=== PATIENT | female | born 2005 | race Two or more races ===

== ENCOUNTER 2023-06-11 19:42 | Emergency (ER) | payer MEDICAID ==
[~2023-06-11] VITALS: Ht 167.6 cm; Wt 97.8 kg
[2023-06-11] MEDS ORDERED: CEPH500C PO (23:10)
[2023-06-11] MEDS ORDERED: ACET500T58 PO (23:10)
[2023-06-11] MEDS: TETANUS-DIPTH-ACEL PERTUSSIS 0.5ML SYR Tdap IM ONE (23:41)
[2023-06-11] MEDS: cefTRIAXone SOD 1,000 MG VL IM ONE (23:41)
[2023-06-11 23:59] VITALS: BP 132/72; PULSE 78; RESP 18; TEMP 98.1; O2SAT 99
== END 2023-06-11 23:58 | disposition home or self-care (01) ==
LOC: ER 19:42
DX: S20.162A Insect bite (nonvenomous) of breast, left breast, initial encounter (principal); W57.XXXA Bitten or stung by nonvenomous insect and other nonvenomous arthropods, initial encounter; Y93.89 Activity, other specified; Y92.89 Other specified places as the place of occurrence of the external cause; Y99.8 Other external cause status
CPT/HCPCS: 90471; 90715; 96372; 99284; J0696

== ENCOUNTER 2024-06-08 08:45 | Emergency (ER) | payer MEDICAID ==
[~2024-06-08] VITALS: Ht 167.6 cm; Wt 115.1 kg
[~2024-06-08 08:45] MED LIST: ACET500T58 PO; CEPH500C PO
[2024-06-08 08:55] VITALS: BP 150/75; PULSE 99; RESP 15; TEMP 98.2; O2SAT 99
--- NOTE | 2024-06-08 09:12 | ED.PDOC ---
HPI Allergic reaction HPI Comments 19 y.o female presents to the ED for an evaluation of pruritus x 2 days associated with a development of a generalized rash this morning and SOB. Patient reports both upper and lower extremities are red due to itching. Patient is unsure of possible allergic reaction as she denies any known allergies. Patient denies any SOB, difficulty swallowing, fever, chills, or sore throat. Chief Complaint: Rash Time Seen by MD: 08:51 Primary Care Provider: UNKNOWN Reviewed Notes: Nurses Notes, Medications, Allergies Allergies: Coded Allergies: NO KNOWN ALLERGIES (Unverified , 06/11/23) Home Meds Active Scripts Cephalexin Monohydrate (Cephalexin) 500 Mg Cap, 1 CAP PO BID for 7 Days, #14 CAP 0 Refills Prov:DASH GANN 06/11/23 Acetaminophen (Acetaminophen) 500 Mg Tab, 500 MG PO Q4HPRN, #30 TAB 0 Refills Prov:DASH GANN 06/11/23 Information Source: Patient Mode of Arrival: Ambulatory Severity: Moderate Rash: Moderate SOB: Mild Difficulty swallowing: None Pruritus: Moderate Timing: Days (2) Duration: Since onset Location: Generalized Exposed to: Unknown Developed: Pruritus, Rash, Shortness of Breath History of: None Modyifying Factors: None Associated Sign and Symptoms: None Past Medical History PAST MEDICAL HISTORY: Denies Surgical History: Denies all surgeries Family History Family History: Unknown Social History Smoker: Non-Smoker Alcohol: Denies ETOH Use Drugs: Denies Drug Use Lives In: Home Constitutional: denies: chills, diaphoresis, fatigue, fever, malaise, sweats, weakness, others EENTM: denies: blurred vision, double vision, ear bleeding, ear discharge, ear drainage, ear pain, ear ringing, eye pain, eye redness, hearing loss, mouth pain, mouth swelling, nasal discharge, nose bleeding, nose congestion, nose pain, photophobia, tearing, throat pain, throat swelling, voice changes, others Respiratory: denies: cough, hemoptysis, orthopnea, SOB at rest, shortness of breath, SOB with excertion, stridor, wheezing, others Cardiovascular: denies: chest pain, dizzy spells, diaphoresis, Dyspnea on exertion, edema, irregular heart beat, left arm pain, lightheadedness, palpitat ions, PND, syncope, others Gastrointestinal: denies: abdomen distended, abdominal pain, blood streaked bow els, constipated, diarrhea, dysphagia, difficulty swallowing, hematemesis, melena, nausea, poor appetite, poor fluid intake, rectal bleeding, rectal pain, vomiting, others Genitourinary: denies: abnormal vagina bleeding, burning, dyspareunia, dysuria, flank pain, frequency, hematuria, incontinence, pain, , vagina discharge, urgency, others Neurological: denies: dizziness, fainting, headache, left sided numbness, left sided weakness, numbness, paresthesia, pre-existing deficit, right sided numbness, right sided weakness, seizure, speech problems, tingling, tremors, weakness, others Musculoskeletal: denies: back pain, gout, joint pain, joint swelling, muscle pain, muscle stiffness, neck pain, others Integumetry: reports: rash; denies: bruises, change in color, change in hair/nails, dryness, laceration, lesions, lumps, wounds, others Allergic/Immunocompromised: denies: Difficulty Healing, Frequent Infections, Hives, Itching, others Hematologic/Lymphatic: denies: anemia, blood clots, easy bleeding, easy bruising, swollen glands, others Endocrine: denies: excessive hunger, excessive sweating, excessive thirst, excessive urination, flushing, intolerance to cold, intolerance to heat, unexplained weight gain, unexplained weight loss, others Psychiatric: denies: anxiety, bipolar disorder, depression, hopeless, panic di sorder, schizophrenia, sleepless, suicidal, others All Other Systems: Reviewed and Negative Physical Exam General Appearance: Moderate Distress HEENT: Normal ENT Inspection, Pharynx Normal, TMs Normal Neck: Full Range of Motion, Non-Tender, Normal, Normal Inspection Respiratory: Chest Non-Tender, Lungs Clear, No Accessory Muscle Use, No Respiratory Distress, Normal Breath Sounds Cardiovascular: No Edema, No JVD, No Murmur, No Gallop, Normal Peripheral Pulses, Regular Rate/Rhythm Breast Exam: Deferred Gastrointestinal: No Organomegaly, Non Tender, No Pulsatile Mass, Normal Bowel Sounds, Soft Genitalia: Deferred Pelvic: Deferred Rectal: Deferred Extremities: No calf tenderness, Normal capillary refill, Normal inspection, Normal range of motion, Non-tender, No pedal edema Musculoskeletal : Apperance: Normal Neurologic: Alert, spout positioner II-XII nml as Tested, No Motor Deficits, Normal Affect, Normal Mood, No Sensory Deficits Cerebellar Function: Normal Reflexes: Normal Skin: Rash (Erythematous forearm legs) Peripheral Pulses: 3+ Radial (R), 3+ Radial (L) Lymphatic: No Adenopathy Was a procedure done? Was a procedure done?: No Differential diagnosis (all) Differential Diagnosis: Anaphylaxis, Contact Dermatitis, Drug Reaction, Urticaria X-Ray, Labs, Meds, VS Vital Signs Date Time Temp Pulse Resp B/P (MAP) Pulse Ox O2 Delivery O2 Flow Rate FiO2 06/08/24 08:55 98.2 99 15 150/75 (100) 99 98.2 06/08/24 08:47 98.2 99 15 150/75 (100) 99 98.2 06/08/24 08:47 99 15 99 Room Air Current Medications Medications (Trade) Dose Ordered Sig/Negro Route Start Time Stop Time Status Last Admin Methylprednisolone Sodium Succinate (Solu Medrol) 125 mg ONCE ONCE IM 06/08/24 09:00 06/08/24 09:02 DC 06/08/24 09:13 Patient alert. Started to have rash. She has been having itching for the past few days. Rash just started today. Vitals stable. Answering questions. Was given steroid. Was given prescription of prednisolone. No leg swelling. No shortness a breath. No chest pain. Saturation pristine on room air. Respiratory rate within normal limits. Heart rate clinically is normal. Explained to the patient. Was told to follow up with her primary care physician. Was told to come back if there is any problem. Time of 1ST Reevaluation: 09:11 Reevaluation 1ST: Improved Patient Education/Counseling: Diagnosis, Treatment, Prognosis Family Education/Counseling: No Family Present Departure 1 Departure Time of Disposition: 09:26 Impression: Primary Impression: Allergic reaction Qualified Codes: T78.40XA - Allergy, unspecified, initial encounter Disposition: HOME / SELF CARE / HOMELESS Condition: Good e-Prescriptions Prednisone (Prednisone) 10 Mg Tab 10 MG PO DAILY for 7 Days, #7 MG Prov: RYLAND ROMEO MD 06/08/24 Discharged With: Self Critical Care Note Critical Care Time?: No Stability Stability form required: No I personally scribed for RYLAND ROMEO MD ([email or web address]) on 06/08/24 at 09:12. Electronically submitted by Michelle Patel ([email or web address]). RYLAND ROMEO MD Jun 08, 2024 09:12
[2024-06-08] MEDS: methylPREDNISolone SOD SUCC 125 MG/2 ML VL IM ONE (09:13)
[2024-06-08] MEDS ORDERED: PRED10TA PO (09:27)
== END 2024-06-08 10:42 | disposition home or self-care (01) ==
LOC: ER 08:45
DX: T78.49XA Other allergy, initial encounter (principal); X58.XXXA Exposure to other specified factors, initial encounter
CPT/HCPCS: 96372; 99283; J2919

== ENCOUNTER 2024-08-23 08:04 | Emergency (ER) | payer MEDICAID ==
[~2024-08-23] VITALS: Ht 167.6 cm; Wt 116.4 kg
[~2024-08-23 08:04] MED LIST changes: +PRED10TA PO
--- NOTE | 2024-08-23 08:32 | ED.PDOC ---
Back pain HPI HPI Comments A 19 YEAR-OLD FEMALE PRESENTS TO THE ED WITH A CHIEF COMPLAINT OF LEFT BUTTOCK OF YESTERDAY MORNING. PATIENT REPORTS THAT PAIN IS A 9/10, RADIATES TO THE LEFT LEG, IS EXACERBATED WITH MOVEMENT, WITH IBUPROFEN A SLIGHT ALLEVIATING FACTOR. PATIENT HAS NO FURTHER COMPLAINTS AT THIS TIME AND OTHERWISE DENIES TRAUMA OR INJURY TO THE BACK, WELL , N/V/D, DIZZINESS, CHEST PAIN, FEVER, OR BODY ACHES. PATIENT IS ALERT, ORIENTED X 4, AND HAS STEADY GAIT. Chief Complaint: Back Pain Time Seen by MD: 08:20 Primary Care Provider: UNKNOWN Reviewed Notes: Nurses Notes, Medications, Allergies Allergies: Coded Allergies: NO KNOWN ALLERGIES (Unverified , 06/11/23) Home Meds Active Scripts Methocarbamol (Methocarbamol) 750 Mg Tab, 750 MG PO BID, #20 TAB Prov:MANUELITO COSBY 08/23/24 Ibuprofen (Ibuprofen) 800 Mg Tab, 1 TAB PO TID, #30 TAB Prov:MANUELITO COSBY 08/23/24 Prednisone (Prednisone) 10 Mg Tab, 10 MG PO DAILY for 7 Days, #7 MG Prov:RYLAND ROMEO MD 06/08/24 Cephalexin Monohydrate (Cephalexin) 500 Mg Cap, 1 CAP PO BID for 7 Days, #14 CAP 0 Refills Prov:DASH GANN 06/11/23 Acetaminophen (Acetaminophen) 500 Mg Tab, 500 MG PO Q4HPRN, #30 TAB 0 Refills Prov:DASH GANN 06/11/23 Information Source: Patient Mode of Arrival: Ambulatory Timing: Days (X1) Duration: Since onset, Days Location of Back pain: (L) Buttocks, (L) Lower back Radiates to: Posterior: (L) Buttocks, (L) Thigh Radiates to: Lateral: (L) Buttocks, (L) Thigh Severity: Moderate Prehospital treatment: None Onset: Spontaneous History of: Chronic Back Pain, Other (CHRONIC SCIATICA ) Modifying Factors: Movement Associated signs and symptoms: Other (LEFT BUTTOCK PAIN AND LEFT LEG PAIN ) Past Medical History Past Medical History (Other): SCIATIC PAIN Surgical History: Denies all surgeries SIDE DOOR WORKER History: No Pertinent SIDE DOOR WORKER History Family History Family History: Reviewed,noncontributory to illness Social History Smoker: Non-Smoker Alcohol: Denies ETOH Use Drugs: Denies Drug Use Lives In: Home Constitutional: denies: chills, diaphoresis, fatigue, fever, malaise, sweats, weakness, others EENTM: denies: blurred vision, double vision, ear bleeding, ear discharge, ear drainage, ear pain, ear ringing, eye pain, eye redness, hearing loss, mouth pain, mouth swelling, nasal discharge, nose bleeding, nose congestion, nose pain, photophobia, tearing, throat pain, throat swelling, voice changes, others Respiratory: denies: cough, hemoptysis, orthopnea, SOB at rest, shortness of breath, SOB with excertion, stridor, wheezing, others Cardiovascular: denies: chest pain, dizzy spells, diaphoresis, Dyspnea on exer tion, edema, irregular heart beat, left arm pain, lightheadedness, palpitations, PND, syncope, others Gastrointestinal: denies: abdomen distended, abdominal pain, blood streaked bowels, constipated, diarrhea, dysphagia, difficulty swallowing, hematemesis, melena, nausea, poor appetite, poor fluid intake, rectal bleeding, rectal pain, vomiting, others Genitourinary: denies: abnormal vagina bleeding, burning, dyspareunia, dysuria, flank pain, frequency, hematuria, incontinence, pain, , vagina discharge, urgency, others Neurological: denies: dizziness, fainting, headache, left sided numbness, left sided weakness, numbness, paresthesia, pre-existing deficit, right sided numbness, right sided weakness, seizure, speech problems, tingling, tremors, weakness, others Musculoskeletal: reports: back pain, muscle pain, others (LEFT BUTTOCK PAIN AND LEFT LEG PAIN ); denies: gout, joint pain, joint swelling, muscle stiffness, neck pain Integumetry: denies: bruises, change in color, change in hair/nails, dryness, laceration, lesions, lumps, rash, wounds, others Allergic/Immunocompromised: denies: Difficulty Healing, Frequent Infections, Hives, Itching, others Hematologic/Lymphatic: denies: anemia, blood clots, easy bleeding, easy bruising, swollen glands, others Endocrine: denies: excessive hunger, excessive sweating, excessive thirst, excessive urination, flushing, intolerance to cold, intolerance to heat, u nexplained weight gain, unexplained weight loss, others Psychiatric: denies: anxiety, bipolar disorder, depression, hopeless, panic disorder, schizophrenia, sleepless, suicidal, others All Other Systems: Reviewed and Negative Physical Exam General Appearance: No Apparent Distress, Obese HEENT: Normal ENT Inspection, PERRL/EOMI, Pharynx Normal, TMs Normal Neck: Full Range of Motion, Non-Tender, Normal, Normal Inspection Respiratory: Chest Non-Tender, Lungs Clear, No Accessory Muscle Use, No R espiratory Distress, Normal Breath Sounds Cardiovascular: No Edema, No JVD, No Murmur, No Gallop, Normal Peripheral Pulses, Regular Rate/Rhythm Breast Exam: Deferred Gastrointestinal: No Organomegaly, Non Tender, No Pulsatile Mass, Normal Bowel Sounds, Soft Genitalia: Deferred Pelvic: Deferred Rectal: Deferred Extremities: No calf tenderness, Normal capillary refill, Normal inspection, Normal range of motion, Non-tender, No pedal edema Musculoskeletal : Location: Left Extremity Location: Back Apperance: Tenderness: Moderate (TENDERNESS AND MUSCLE SPASM ON LEFT LOW BACK, NO BONY TENDERNESS, SWELLING AND DEFORMITY. ) Neurologic: Alert, abap developer II-XII nml as Tested, No Motor Deficits, Normal Affect, Normal Mood, No Sensory Deficits Cerebellar Function: Normal Reflexes: Normal Skin: Dry, Normal Color, Warm Peripheral Pulses: 2+ carotid (R), 2+ carotid (L) Lymphatic: No Adenopathy Was a procedure done? Was a procedure done?: No Back Pain Differential Dx Differential Diagnosis: Fracture, Musculoskeletal Pain, Strain X-Ray, Labs, Meds, VS Vital Signs Date Time Temp Pulse Resp B/P (MAP) Pulse Ox O2 Delivery O2 Flow Rate FiO2 08/23/24 08:17 97.7 79 18 143/82 (102) 98 97.7 X-Ray, Labs, Meds, VS Comment EXTERNAL MEDICAL RECORDS: NONE INDEPENDENT HISTORIANS: NONE SOCIAL DETERMINANTS OF HEALTH: NONE LABS ORDERED: NONE REVIEWED AND INTERPRETED RESULTS: NONE IMAGING ORDERED: NONE TREATMENTS ORDERED: TORADOL INJECTION PATIENT'S CASE AND RESULTS HAVE BEEN DISCUSSED WITH THE ED ATTENDING PHYSICIAN AND THEY AGREE WITH MY PLAN OF CARE. RX: ROBAXIN AND IBUPROFEN I HAVE DISCUSSED THE RESULTS WITH THE PATIENT AND HAVE INSTRUCTED THE PATIENT TO FOLLOW UP WITH THEIR PCP IN 1-2 DAYS. THE PATIENT FULLY UNDERSTANDS THEIR RESULTS AND ARE AWARE THEY NEED TO FOLLOW UP WITH THEIR PCP FOR FURTHER EVALUATION IF THEIR SYMPTOMS PERSIST. Images Reviewed?: Images reviewed and evaluated by me Time of 1ST Reevaluation: 09:00 Reevaluation 1ST: Improved Patient Education/Counseling: Diagnosis, Treatment, Need For Follow Up Family Education/Counseling: Diagnosis, Treatment, Need For Follow Up Medical Screening: No EMC Exist At This Time SEPSIS Sepsis Screen Date sepsis recognized/suspect: Aug 23, 2024 Time Sepsis recognized/suspect: 811 Recent Procedure: No On Antibiotic Therapy: No Respiratory Rate >20: No Heart Rate >90: No Temp<36 C (96.8 F) or >38.3 C: No SBP <90 or MAP <65 mmHG: No New Acute Mental Status Change: No Is the patient on CPAP, BIPAP,: No Vital Signs Date Time Temp Pulse Resp B/P (MAP) Pulse Ox O2 Delivery O2 Flow Rate FiO2 08/23/24 08:17 97.7 79 18 143/82 (102) 98 97.7 Departure 1 Departure Time of Disposition: 09:20 Impression: Primary Impression: Left-sided low back pain with sciatica Qualified Codes: M54.42 - Lumbago with sciatica, left side Disposition: HOME / SELF CARE / HOMELESS Condition: Stable Additional Instructions: FOLLOW-UP WITH PCP IN 1 TO 2 DAYS. TAKE MEDICATIONS PRESCRIBED. RETURN TO ED FOR ANY NEW OR WORSENING SYMPTOMS. e-Prescriptions Methocarbamol (Methocarbamol) 750 Mg Tab 750 MG PO BID, #20 TAB Prov: MANUELITO COSBY 08/23/24 Ibuprofen (Ibuprofen) 800 Mg Tab 1 TAB PO TID, #30 TAB Prov: MANUELITO COSBY 08/23/24 Discharged With: Self Critical Care Note Critical Care Time?: No Stability Stability form required: No Heart Score Heart Score: Heart Score Response (Comments) Value History N/A 0 EKG N/A 0 Age N/A 0 Risk Factors N/A 0 Troponin N/A 0 Total 0 I personally scribed for MANUELITO COSBY ([email or web address]) on 08/23/24 at 08:32. Electronically submitted by Estrellita Hoyt ([email or web address]). I personally scribed for MANUELITO COSBY ([email or web address]) on 08/23/24 at 08:34. Electronically submitted by Estrellita Hoyt ([email or web address]). I personally scribed for MANUELITO COSBY PA ([email or web address]) on 08/23/24 at 08:41. Electronically submitted by Estrellita Hoyt ([email or web address]). I personally scribed for ALEAJARETHA PA ([email or web address]) on 08/23/24 at 08:42. Electronically submitted by Estrellita Hoyt ([email or web address]). I personally scribed for ALEAJARETHA PA ([email or web address]) on 08/23/24 at 08:50. Electronically submitted by Estrellita Hoyt ([employer]). I personally scribed for ALEAJARETH EarlA PA ([email or web address]) on 08/23/24 at 08:51. Electronically submitted by Estrellita Hoyt ([employer]T). I personally scribed for JARETH COSBYA PA ([email or web address]) on 08/23/24 at 08:55. Electronically submitted by Estrellita Hoyt ([employer]). JARETH COSBYA PA Aug 23, 2024 08:32
[2024-08-23] MEDS ORDERED: METH-1182 PO (08:55)
[2024-08-23] MEDS ORDERED: IBUP-1456 PO (08:55)
[2024-08-23] MEDS: KETOROLAC TROMETH 60MG/2ML VIAL IM ONE (09:42)
[2024-08-23 09:46] VITALS: BP 149/90; PULSE 97; RESP 20; TEMP 98.4; O2SAT 100
== END 2024-08-23 09:50 | disposition home or self-care (01) ==
LOC: ER 08:04
DX: M54.42 Lumbago with sciatica, left side (principal); Z79.1 Long term (current) use of non-steroidal anti-inflammatories (NSAID); Z79.52 Long term (current) use of systemic steroids
CPT/HCPCS: 96372; 99283; J1885